=== PATIENT | female | born 1955 | race Caucasian/White ===

== ENCOUNTER → 2016-10-28 | Outpatient (CLI) | payer OTHER | LOC: MAMO 10-20 08:00 | DX: Z12.31 Encounter for screening mammogram for malignant neoplasm of breast (principal) | CPT/HCPCS: G0202 ==

== ENCOUNTER → 2021-08-27 | Outpatient (CLI) | payer MEDICARE, OTHER | LOC: HEART 5 14:16 | DX: R00.2 Palpitations (principal) ==